=== PATIENT | female | born 1985 | race Caucasian/White ===

== ENCOUNTER 2016-11-30 12:30 | Inpatient (IN) | payer OTHER ==
[~2016-11-30] VITALS: Ht 167.6 cm; Wt 102.9 kg
[2016-12-02 06:12] VITALS: Ht 167.6 cm; Wt 102.9 kg
[2016-12-02 06:13] VITALS: BP 113/78; PULSE 118; RESP 18
[2016-12-02] MEDS ORDERED: METHYLERGONOVINE 0.2 MG INJ IM PRN ×3 (06:30→12:00)
[2016-12-02] MEDS ORDERED: MISOPROSTOL 200 MCG TAB PR PRN ×3 (06:30→12:00)
[2016-12-02] MEDS ORDERED: CARBOPROST 250 MCG INJ IM PRN ×3 (06:30→12:00)
[2016-12-02] MEDS ORDERED: OXYTOCIN 30 UNITS/LR 500 ML IV SCH ×2 (06:30→07:00)
[2016-12-02] MEDS ORDERED: OXYTOCIN 30 UNITS/LR 500 ML IV PRN ×3 (06:30→12:00)
[2016-12-02] MEDS ORDERED: CEFAZOLIN 2 GM/50 ML (PMX) 50 ML IV SCH ×2 (06:30→07:00)
[2016-12-02] MEDS: LACTATED RINGER'S 1,000 ML IV SCH ×2 (06:53→07:38)
[2016-12-02 07:01] LABS: ADD SCAN DIFF NO
[2016-12-02] MEDS ORDERED: ONDANSETRON 4 MG INJ IV STA (07:23)
[2016-12-02] MEDS ORDERED: CITRIC ACID/NA CITRATE 30 ML CUP ONE (07:26)
[2016-12-02] MEDS ORDERED: ONDANSETRON 4 MG INJ ONE ×2 (07:27→07:29)
[2016-12-02 07:28] LABS: ABNORMAL IP MESSAGE 1; BASOPHILS % 0.3 % (0.0-2.0); EOSINOPHILS # 0.1 10^3/ul (0.0-0.5); EOSINOPHILS % 1.2 % (0.0-7.0); HEMATOCRIT 30.8 % (37.0-47.0); HEMOGLOBIN 9.8 g/dl (12.0-16.0); LYMPHOCYTES # 2.3 10^3/ul (0.8-2.9); MEAN CORPUSCULAR HEMOGLOBIN 20.1 pg (29.0-33.0); MEAN CORPUSCULAR HGB CONC 31.8 g/dl (32.0-37.0); MEAN CORPUSCULAR VOLUME 63.1 fl (82.0-101.0); MEAN PLATELET VOLUME 11.4 fl (7.4-10.4); MONOCYTE # 0.7 10^3/ul (0.3-0.9); MONOCYTES % 6.2 % (0.0-11.0); NEUTROPHIL # 7.7 10^3/ul (1.6-7.5); NEUTROPHILS % 70.7 % (39.0-77.0); PLATELET COUNT 336 10^3/UL (140-415); RED BLOOD COUNT 4.88 10^6/ul (4.20-5.40); RED CELL DISTRIBUTION WIDTH 16.7 % (11.5-14.5); WHITE BLOOD COUNT 10.9 10^3/ul (4.8-10.8)
[2016-12-02] MEDS ORDERED: KETOROLAC 30 MG INJ ONE (07:29)
[2016-12-02] MEDS ORDERED: DEXAMETHASONE 4 MG/ML 1 ML INJ ONE (07:29)
[2016-12-02] MEDS ORDERED: METOCLOPRAMIDE 10 MG INJ ONE (07:29)
[2016-12-02] MEDS ORDERED: OXYTOCIN 10 UNIT INJ ONE (07:29)
[2016-12-02] MEDS ORDERED: PHENYLephrine (100 MCG/ML) 5ML SYG ONE ×3 (07:29→08:42)
[2016-12-02] MEDS ORDERED: morphine SULFATE/PF (10 MG/10 ML) INJ ONE (07:29)
[2016-12-02] MEDS ORDERED: CITRIC ACID/SODIUM CITRATE 15 ML CUP PO ONE (07:30)
[2016-12-02 07:34] LABS: INR 0.92; PROTIME 12.4 Sec (12.2-14.2)
[2016-12-02 07:35] LABS: PARTIAL THROMBOPLASTIN TIME 26.7 Sec (25.0-35.0)
[2016-12-02] MEDS ORDERED: DIPHENHYDRAMINE 50 MG INJ IV PRN (08:30)
[2016-12-02] MEDS ORDERED: HYDROmorphONE 1 MG/ML SYG IV PRN ×2 (08:30)
[2016-12-02] MEDS ORDERED: NALBUPHINE HCL (10 MG/1 ML) INJ IV PRN (08:30)
[2016-12-02] MEDS ORDERED: morphine 4 MG/ML VIAL IV PRN (08:30)
[2016-12-02] MEDS ORDERED: ONDANSETRON 4 MG INJ IV PRN (08:30)
[2016-12-02] MEDS ORDERED: ACETAMINOPHEN 500 MG TAB PO PRN (08:30)
[2016-12-02] MEDS ORDERED: NALOXONE (0.4 MG/ML) INJ IV PRN (08:30)
[2016-12-02] MEDS ORDERED: HYDROCODONE/APAP (5/325) TAB PO PRN (08:30)
[2016-12-02] MEDS ORDERED: morphine 2 MG INJ IV PRN (08:30)
--- NOTE | 2016-12-02 09:19 | HP ---
Date/Time of Note Date/Time of Note DATE: 12/02/16 TIME: 09:09 OB - History Hx of Present Free Text/Dictation 31 years old white female 1 para 0 EDC December 07, 2016 admitted to [facility] at 39 weeks and 2 days with request for elective section delivery patient has been counseled regarding the application of section including but not limited to bowel bladder injury infection hemorrhage and hematoma versus vaginal delivery patient elected the This patient has been under the care of the [facility] [facility] her was not complicated with gestational diabetes -induced hypertension or any other medical or surgical condition 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 Every 30 days lasting for 5 days Estimated Due Date: December 02, 2016 : 1 Para: 9 Ultrasounds: Normal mid trimester US Obstetrical Complications: None Medical Complications: None Past Family/Social History * Past Medical, Surgical, Family and Obstetric Histories reviewed from chart. Rubella: immune RPR/VDRL: Negative GBS Status: Negative HBsAG: Negative OB Admission Exam Vital Signs Vital Signs Vital Signs Date Time Temp Pulse Resp B/P Pulse Ox O2 Delivery O2 Flow Rate FiO2 12/02/16 06:13 98.3 118 18 113/78 Room Air Physical Exam HEENT: WNL Lungs: Clear, Equal Abdomen: WNL Extremities: Normal Reflexes: Normal Station: -2 Membranes: Intact Heart Rate: 130's Accelerations: Accelerations Present Decelerations: No Decelerations Varibility: Absent Last 72 hours Lab Results CBC & BMP 12/02/16 06:30 MARTI BURNSON MD December 02, 2016 09:19
--- NOTE | 2016-12-02 09:41 | OPR ---
DATE OF OPERATION: 12/02/2016 PREOPERATIVE DIAGNOSES: Intrauterine at 39 weeks plus gestation, requests for se ction delivery due to tocophobia (fear of labor contractions). POSTOPERATIVE DIAGNOSES: Intrauterine at 39 weeks plus gestation, requests for s ection delivery due to tocophobia (fear of labor contractions). OPERATION PERFORMED: Primary transverse low cervical section. SURGEON: Marti Ibrahim MD FORKLIFT MATERIAL HANDLER: Ramin Smith MD ANESTHESIA: Spinal. ANESTHESIOLOGIST: Noble Rockwell MD FINDINGS: Live baby boy with the 9 and 9. DETAILS OF THE PROCEDURE: Under satisfactory spinal anesthesia, the patient was prepped and draped and placed in supine position, tilted to the left. Pfannenstiel incision was made, incision carried through the subcutaneous tissue. Bleeders brought under control with electrocautery. Fascia incis ed to the length of the incision. Rectus muscle divided in midline. Peritoneum exposed, entered th rough a transverse incision. Exploration of abdomen gravid uterus, normal appearing tubes and ovari es. Bladder flap was developed. Transverse incision was made in the lower segment of the uterus. Amniotic sac ruptured. Clear amniotic fluid noted. Live baby boy was delivered from occiput face cleaner ior with the nuchal cord around the baby's neck and right ankle which was untied. Baby delivered wi thout any difficulty. Cord was clamped after stop pulsation. Baby handed to the team afte r nasal oropharyngeal suction was performed at . Placenta delivered manually, and uterine cavi ty cleaned with wet sponge and drainage established. Uterus closed in 2 layers using Monocryl #1 in continuous fashion. Peritoneal cavity irrigated with warm saline. Sponge, needle and instrument r eported to be correct. Abdominal peritoneum closed with 2-0 chromic catgut continuously. Rectus mu scle approximated with few interrupted 2-0 chromic catgut. Fascia closed with #1 PDS in a continuou s fashion. Subcutaneous tissue approximated with 2-0 chromic catgut and the skin closed with 3-0 Mo nocryl subcuticular. Estimated blood loss 600 mL. Urine bag contained 200 mL of clear urine. Jackeline ent tolerated the procedure well, transferred to recovery room in a good condition. Dictated By: MARTI IBRAHIM MD HF/NTS Conf#: [id number] DID#: [id number] CC: RAMIN SMITH MD;*End*
[2016-12-02] MEDS: KETOROLAC 30 MG INJ IV PRN ×3 (11:34→23:55)
[2016-12-02 11:40] VITALS: BP 121/68; PULSE 108; RESP 18
[2016-12-02] MEDS ORDERED: LANOLIN 7 GM TUBE TOP PRN (12:00)
[2016-12-02] MEDS ORDERED: ACETAMINOPHEN/CODEINE #3 TAB PO PRN ×2 (12:00)
[2016-12-02] MEDS ORDERED: OXYCODONE/ACETAMINOPHEN (5/325) TAB PO PRN (12:00)
[2016-12-02] MEDS ORDERED: CEFAZOLIN 1 GM/50 ML (PMX) 50 ML IVPB SCH (12:00)
[2016-12-02 12:15] VITALS: BP 126/63; PULSE 104; RESP 18
[2016-12-02] MEDS: OXYTOCIN 30 UNITS/LR 500 ML IV SCH ×3 (13:08→22:06)
[2016-12-02 13:15] VITALS: BP 116/70; PULSE 100; RESP 20
[2016-12-02] MEDS: HYDROmorphONE 1 MG/ML SYG IV PRN (13:20)
[2016-12-02 16:00] VITALS: BP 102/72; PULSE 110; RESP 18
[2016-12-02 19:40] VITALS: BP 99/63; PULSE 106; RESP 18
[2016-12-02] MEDS: SENNA/DOCUSATE NA (8.6MG/50MG) TAB PO SCH (21:04)
[2016-12-03] VITALS: BP 102/56; PULSE 98; RESP 18
[2016-12-03] MEDS: OXYTOCIN 30 UNITS/LR 500 ML IV SCH ×6 (02:10→19:55)
[2016-12-03 04:20] VITALS: BP 102/60; PULSE 102; RESP 18
[2016-12-03] MEDS ORDERED: LACTATED RINGER'S 250 ML IV ONE (06:00)
[2016-12-03] MEDS ORDERED: LACTATED RINGER'S 1,000 ML IV SCH (06:00)
[2016-12-03 07:25] LABS: ADD SCAN DIFF NO
[2016-12-03 07:27] LABS: ABNORMAL IP MESSAGE 1; BASOPHIL # 0.1 10^3/ul (0.0-0.1); BASOPHILS % 0.5 % (0.0-2.0); EOSINOPHILS # 0.1 10^3/ul (0.0-0.5); EOSINOPHILS % 1.1 % (0.0-7.0); HEMATOCRIT 25.8 % (37.0-47.0); LYMPHOCYTES # 2.4 10^3/ul (0.8-2.9); LYMPHOCYTES % 22.5 % (15.0-51.0); MEAN CORPUSCULAR HEMOGLOBIN 19.8 pg (29.0-33.0); MEAN CORPUSCULAR VOLUME 63.7 fl (82.0-101.0); MEAN PLATELET VOLUME 11.7 fl (7.4-10.4); MONOCYTE # 0.6 10^3/ul (0.3-0.9); MONOCYTES % 5.6 % (0.0-11.0); NEUTROPHIL # 7.4 10^3/ul (1.6-7.5); NEUTROPHILS % 69.9 % (39.0-77.0); PLATELET COUNT 271 10^3/UL (140-415); RED BLOOD COUNT 4.05 10^6/ul (4.20-5.40); RED CELL DISTRIBUTION WIDTH 16.3 % (11.5-14.5); WHITE BLOOD COUNT 10.6 10^3/ul (4.8-10.8)
[2016-12-03 08:01] VITALS: BP 91/56; PULSE 99; RESP 18
[2016-12-03] MEDS: SENNA/DOCUSATE NA (8.6MG/50MG) TAB PO SCH ×2 (08:17→21:45)
[2016-12-03] MEDS: HYDROmorphONE 1 MG/ML SYG IV PRN (08:17)
--- NOTE | 2016-12-03 10:59 | PN ---
Date/Time of Note Date/Time of Note DATE: 12/03/16 TIME: 10:58 OB Subjective Subjective Subjective Post day 1 Vital signs stable afebrile abdomen soft uterus firm lochia normal extremity normal ambulation encouraged diet advanced as tolerated Laboratory Tests Test 12/03/16 06:49 White Blood Count 10.610^3/ul Red Blood Count 4.0510^6/ul Hemoglobin 8.0g/dl Hematocrit 25.8% Mean Corpuscular Volume 63.7fl Mean Corpuscular Hemoglobin 19.8pg Mean Corpuscular Hemoglobin Concent 31.0g/dl Red Cell Distribution Width 16.3% Platelet Count 61511^3/UL Mean Platelet Volume 11.7fl Neutrophils % 69.9% Lymphocytes % 22.5% Monocytes % 5.6% Eosinophils % 1.1% Basophils % 0.5% Nucleated Red Blood Cells % 0.0/100WBC Neutrophils # 7.410^3/ul Lymphocytes # 2.410^3/ul Monocytes # 0.610^3/ul Eosinophils # 0.110^3/ul Basophils # 0.110^3/ul Nucleated Red Blood Cells # 0.010^3/ul Current Medications Medications (Trade) Dose Ordered Sig/Lu Route PRN Reason Start Time Stop Time Status Last Admin Dose Admin Cefazolin Sodium/ Dextrose 50 ml @ 100 mls/hr ONCE IV 12/02/16 06:30 12/02/16 06:41 DC Oxytocin/Lactated Ringer's 500 ml @ 125 mls/hr ONCE IV 12/02/16 06:30 12/02/16 06:41 DC Oxytocin/Lactated Ringer's 500 ml @ 0 mls/hr ONCE PRN IV For Hemorrhage Management 12/02/16 06:30 12/02/16 06:41 DC Methylergonovine Maleate (Methergine) 0.2 mg ONCE PRN IM VAGINAL BLEEDING 12/02/16 06:30 12/02/16 06:41 DC Carboprost Tromethamine (Hemabate) 250 mcg ONCE PRN IM VAGINAL BLEEDING 12/02/16 06:30 12/02/16 06:41 DC Misoprostol 1000 mcg 1,000 mcg ONCE PRN SD VAGINAL BLEEDING 12/02/16 06:30 12/02/16 06:41 DC Lactated Ringer's 1,000 ml @ 125 mls/hr Q8H IV 12/02/16 06:35 12/02/16 11:58 DC 12/02/16 07:38 Cefazolin Sodium/ Dextrose 50 ml @ 100 mls/hr ONCE IV 12/02/16 07:00 12/02/16 11:58 DC Oxytocin/Lactated Ringer's 500 ml @ 125 mls/hr ONCE IV 12/02/16 07:00 12/02/16 11:58 DC 12/02/16 09:35 Oxytocin/Lactated Ringer's 500 ml @ 0 mls/hr ONCE PRN IV For Hemorrhage Management 12/02/16 07:00 12/02/16 11:58 DC Methylergonovine Maleate (Methergine) 0.2 mg ONCE PRN IM VAGINAL BLEEDING 12/02/16 07:00 12/02/16 11:59 DC Carboprost Tromethamine (Hemabate) 250 mcg ONCE PRN IM VAGINAL BLEEDING 12/02/16 07:00 12/02/16 11:59 DC Misoprostol (Cytotec) 1,000 mcg ONCE PRN SD VAGINAL BLEEDING 12/02/16 07:00 12/02/16 11:59 DC Citric Acid/ Sodium Citrate (Bicitra) 30 ml ONCE ONCE PO 12/02/16 07:30 12/02/16 07:31 DC 12/02/16 08:04 Ondansetron HCl (Zofran Inj) 4 mg ONCE STAT IV 12/02/16 07:23 12/02/16 07:30 DC 12/02/16 08:04 Citric Acid/ Sodium Citrate (Bicitra) 30 ml STK-MED ONCE .ROUTE 12/02/16 07:26 12/02/16 07:27 DC Ondansetron HCl (Zofran Inj) 4 mg STK-MED ONCE .ROUTE 12/02/16 07:27 12/02/16 07:28 DC Morphine Sulfate (Duramorph) 10 mg STK-MED ONCE .ROUTE 12/02/16 07:29 12/02/16 07:30 DC Ondansetron HCl (Zofran Inj) 4 mg STK-MED ONCE .ROUTE 12/02/16 07:29 12/02/16 07:30 DC Metoclopramide HCl (Reglan) 10 mg STK-MED ONCE .ROUTE 12/02/16 07:29 12/02/16 07:30 DC Oxytocin (Oxytocin) 10 units STK-MED ONCE .ROUTE 12/02/16 07:29 12/02/16 07:30 DC Phenylephrine HCl (Lico-Synephrine Inj Syg) 500 mcg STK-MED ONCE .ROUTE 12/02/16 07:29 12/02/16 07:30 DC Ketorolac Tromethamine (Toradol) 30 mg STK-MED ONCE .ROUTE 12/02/16 07:29 12/02/16 07:30 DC Dexamethasone (Decadron) 4 mg STK-MED ONCE .ROUTE 12/02/16 07:29 12/02/16 07:30 DC Phenylephrine HCl (Lico-Synephrine Inj Syg) 500 mcg STK-MED ONCE .ROUTE 12/02/16 08:19 12/02/16 08:20 DC Hydromorphone HCl (Dilaudid) 0.2 mg Q2H PRN IV PAIN LEVEL 1-5 12/02/16 08:30 12/03/16 07:49 DC Hydromorphone HCl (Dilaudid) 0.4 mg Q2H PRN IV PAIN LEVEL 6-10 12/02/16 08:30 12/02/16 13:18 DC Morphine Sulfate (morphine) 2 mg Q2H PRN IV PAIN LEVEL 1-5 12/02/16 08:30 12/03/16 07:49 DC Morphine Sulfate (morphine) 4 mg Q2H PRN IV PAIN LEVEL 6-10 12/02/16 08:30 12/03/16 07:49 DC Ketorolac Tromethamine (Toradol) 30 mg Q6H PRN IV PAIN LEVEL 6-10 12/02/16 08:30 12/03/16 07:49 DC 12/02/16 23:55 Acetaminophen (Tylenol Tab) 500 mg Q4H PRN PO PAIN LEVEL 1-3 12/02/16 08:30 12/03/16 07:49 DC Acetaminophen/ Hydrocodone Bitart (Ulmer (5/325)) 1 tab Q4H PRN PO PAIN LEVEL 4-6 12/02/16 08:30 12/03/16 07:49 DC Diphenhydramine HCl (Benadryl) 25 mg Q4H PRN IV PRURITUS 12/02/16 08:30 12/03/16 07:49 DC Nalbuphine HCl (Nubain) 10 mg Q4H PRN IV PRURITUS 12/02/16 08:30 12/02/16 11:59 DC Ondansetron HCl (Zofran Inj) 4 mg Q6H PRN IV NAUSEA AND/OR VOMITING 12/02/16 08:30 12/03/16 07:49 DC 12/02/16 11:35 Naloxone HCl (Narcan) 0.2 mg Q2M PRN IV FOR RESP RATE 8 OR LESS 12/02/16 08:30 12/03/16 07:49 DC Miscellaneous Information (* Miscellaneous Pharmacy Order) DURAMORPH: 0.2 MG SPI... GIVEN NEURAXIAL XX 12/02/16 08:30 12/02/16 11:59 DC Phenylephrine HCl (Lico-Synephrine Inj Syg) 500 mcg STK-MED ONCE .ROUTE 12/02/16 08:42 12/02/16 08:43 DC Acetaminophen/ Codeine Phosphate (Tylenol No.3) 1 tab Q4H PRN PO PAIN LEVEL 4-6 12/02/16 12:00 Acetaminophen/ Codeine Phosphate (Tylenol No.3) 2 tab Q4H PRN PO PAIN LEVEL 7-10 12/02/16 12:00 Oxycodone/ Acetaminophen (Percocet (5/ 325)) 1 tab Q4H PRN PO PAIN LEVEL 4-6 12/02/16 12:00 Oxycodone/ Acetaminophen (Percocet (5/ 325)) 2 tab Q4H PRN PO PAIN LEVEL 7-10 12/02/16 12:00 Ibuprofen (Motrin) 600 mg Q6 PO 12/03/16 12:00 Simethicone (Mylicon) 160 mg Q8H PRN PO DISTENSION/GAS/BLOATING 12/02/16 12:00 Senna/Docusate Sodium (Senokot-S) 1 tab BID PO 12/02/16 21:00 12/03/16 08:17 Lanolin (Vsq-C-Datnys) 1 applic BEDSIDE MEDICATION PRN TOP BEDSIDE FOR TOSHA TO NIPPLES 12/02/16 12:00 Diphtheria/ Tetanus/Acell Pertussis 0.5 ml 0.5 ml ONCE ONCE IM* 12/05/16 09:00 12/05/16 09:01 Oxytocin/Lactated Ringer's 500 ml @ 0 mls/hr ONCE PRN IV For Hemorrhage Management 12/02/16 12:00 Methylergonovine Maleate (Methergine) 0.2 mg ONCE PRN IM VAGINAL BLEEDING 12/02/16 12:00 Carboprost Tromethamine (Hemabate) 250 mcg ONCE PRN IM VAGINAL BLEEDING 12/02/16 12:00 Misoprostol 1000 mcg 1,000 mcg ONCE PRN SD VAGINAL BLEEDING 12/02/16 12:00 Cefazolin Sodium 50 ml @ 100 mls/hr ONCE IVPB 12/02/16 12:00 12/02/16 12:29 DC 12/02/16 15:55 Oxytocin/Lactated Ringer's 500 ml @ 125 mls/hr Q4H IV 12/02/16 11:55 12/03/16 02:10 Hydromorphone HCl 0.4 mg 0.4 mg Q2H PRN IV PAIN LEVEL 6-10 12/02/16 13:18 12/03/16 08:17 Lactated Ringer's 250 ml @ 125 mls/hr Q2H ONCE IV 12/03/16 06:00 12/03/16 06:00 DC Lactated Ringer's (Lr) 1,000 ml @ 125 mls/hr Q8H IV 12/03/16 06:00 12/03/16 08:40 DC 12/03/16 06:12 MARTI BRUNSON MD December 03, 2016 10:59
[2016-12-03] MEDS: IBUPROFEN 600 MG TAB PO SCH ×3 (11:52→23:59)
[2016-12-03 16:20] VITALS: BP 97/61; PULSE 95; RESP 18
[2016-12-03] MEDS: OXYCODONE/ACETAMINOPHEN (5/325) TAB PO PRN (16:33)
[2016-12-03 20:00] VITALS: BP 92/66; PULSE 91; RESP 20
[2016-12-04 04:50] VITALS: BP 111/72; PULSE 96; RESP 20
[2016-12-04] MEDS: IBUPROFEN 600 MG TAB PO SCH ×4 (05:19→23:50)
[2016-12-04 07:59] VITALS: BP 122/77; PULSE 104; RESP 18
[2016-12-04] MEDS: SENNA/DOCUSATE NA (8.6MG/50MG) TAB PO SCH ×2 (08:07→21:23)
[2016-12-04] MEDS: OXYCODONE/ACETAMINOPHEN (5/325) TAB PO PRN (09:06)
--- NOTE | 2016-12-04 15:56 | PN ---
Date/Time of Note Date/Time of Note DATE: 12/04/16 TIME: 15:54 OB Subjective Subjective Subjective Post day 2 Afebrile vital signs stable abdomen soft incision healing well bowel sounds no bowel movement patient able to pass flatus enema recommended OB Assessment/Plan Plan: Other ( day 2 we will continue post expecting management) MARTI BRUNSON MD December 04, 2016 15:56
[2016-12-04 16:00] VITALS: BP 124/78; PULSE 101; RESP 18
[2016-12-04 19:45] VITALS: BP 119/73; PULSE 96; RESP 18
[2016-12-05 04:30] VITALS: BP 113/79; PULSE 90; RESP 18
[2016-12-05] MEDS: IBUPROFEN 600 MG TAB PO SCH ×3 (05:18→17:42)
[2016-12-05 07:51] VITALS: BP 117/76; PULSE 100; RESP 18
[2016-12-05] MEDS: OXYCODONE/ACETAMINOPHEN (5/325) TAB PO PRN ×2 (08:26→15:31)
[2016-12-05] MEDS: SENNA/DOCUSATE NA (8.6MG/50MG) TAB PO SCH (08:26)
[2016-12-05] MEDS ORDERED: DIPHTH/TET/ACEL PERTUSS (ADULT) 0.5 ML VIAL IM* ONE (09:00)
[2016-12-05 16:00] VITALS: BP 120/76; PULSE 68; RESP 18
--- NOTE | 2016-12-05 16:59 | PD.PPDC ---
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
--- NOTE | 2016-12-05 17:02 | DS ---
Date/Time of Note Date/Time of Note DATE: 12/05/16 TIME: 17:00 Obstetrical Discharge Record Final Diagnosis Final Diagnosis: Term delivered Section Section: Primary Condition on Discharge Physical Assessment Last Vitals: Vital signs stable abdomen soft uterus firm incision healing well patient had normal bowel movement discharged home with the follow-up instructions to be seen at the clinic in 1 week Voiding: Yes Breast: Soft, non-tender Fundus: Firm Abdomen and Incision: Healing well dry free of inflammation Calf Tenderness: No Patient Condition: Good MARTI BRUNSON MD December 05, 2016 17:02
== END 2016-12-05 18:15 | disposition home or self-care (01) | DRG 766 ==
LOC: L-D 12-02 05:58 → PP1 12-02 12:01
PROVIDERS: ADMIT Obstetrics & Gynecology; ATTEND Obstetrics & Gynecology
PROC: 10D00Z1 Extraction of Products of Conception, Low, Open Approach (ICD-10-PCS; principal; 2016-12-02 07:30)
PROC: 3E0234Z Introduction of Serum, Toxoid and Vaccine into Muscle, Percutaneous Approach (ICD-10-PCS; 2016-12-05)
DX: O99.89 Other specified diseases and conditions complicating pregnancy, childbirth and the puerperium (principal); Z3A.39 39 weeks gestation of pregnancy; Z23 Encounter for immunization; Z37.0 Single live birth
CPT/HCPCS: 85025; 85610; 85730; 86592; 86850; 86900; 86901; 87340; 90715; 94760; 99464; J0690; J1100; J1170; J1885; J2274; J2370; J2405; J2590; J2765; J7120